=== PATIENT | female | born 1985 | race Caucasian/White ===

== ENCOUNTER 2017-09-03 09:52 | Emergency (ER) | payer OTHER, MEDICAID ==
[2017-09-03] MEDS ORDERED: Sodium Chloride 0.9% 10 ML Syringe FLUSH PRN (09:59)
[2017-09-03] MEDS ORDERED: Sodium Chloride 0.9% 1,000 ML IV SCH (10:00)
[2017-09-03] MEDS ORDERED: Sodium Chloride 0.9% 10 ML Syringe FLUSH ONE (10:05)
[2017-09-03] MEDS ORDERED: Iopamidol 612 MG/ML 150 ML Bottle IVPUSH ONE (10:05)
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
--- NOTE | 2017-09-03 10:46 | CT ---
CT cervical spine Technique: Multiple axial sections were obtained from above the C1 inferiorly to the mid T2 level. Reconstructed sagittal and coronal images were reviewed. Comparison: No prior CT imaging of the cervical spine. Findings: Posterior skull base is intact. Visualized mastoid sinuses are clear. Vertebral body heights are maintained. Very slight disc space narrowing is noted at C5-C6. Posterior spurring noted at C3-C4. Small posterior spur to the midline noted at C4-C5. No fracture is identified. No bony central canal stenosis or neural foraminal stenosis is seen. Mild kyphosis is seen which is most likely positional. Impression: 1. Mild degenerative change. 2. Nothing acute is seen on CT study of the cervical spine. Diagnostic code #2
[2017-09-03] MEDS ORDERED: Ondansetron 4 MG/2 ML SDV IVPUSH ONE (10:47)
[2017-09-03] MEDS ORDERED: HYDROmorphone 0.5 MG/0.5 ML SYRINGE IVPUSH ONE (10:47)
--- NOTE | 2017-09-03 10:48 | CT ---
Head CT Technique: Multiple axial sections through the brain were obtained. Intravenous contrast was not utilized. Comparison: No previous intracranial imaging. Findings: Ventricles along with basal cisterns and sulci over convexities are within normal limits for the patient's age. No abnormal parenchymal densities are seen. No evidence of intracranial hemorrhage. No midline shift or mass effect is seen. Bone window settings were reviewed which shows mucosal thickening within the ethmoid and maxillary sinuses. Minimal fluid is seen within the sphenoid sinus. Findings most likely are chronic. No acute calvarial abnormality is identified. Impression: 1. Sinus findings which are likely pre-existing and chronic. 2. No acute intracranial abnormality is seen. Nothing acute is seen within the skull. Diagnostic code #2
--- NOTE | 2017-09-03 10:48 | CT ---
CT chest Technique: Multiple axial sections were obtained from above the lung apices inferiorly through the lung bases. Intravenous contrast was utilized. Comparison: No previous chest x-ray or chest CT. Findings: Mediastinum and hilar regions are unremarkable. Opacified great vessels shows no discrete abnormality. No pericardial fluid is seen. Small nodule is noted within the right upper lung in a subpleural location measuring 4 mm. Lungs otherwise are clear. No pleural effusions or pulmonary contusion is seen. No discrete rib fracture is seen. No compression deformities are seen within the thoracic spine. Reconstructed sagittal images of the sternum appear within normal limits. Impression: 1. 4 mm nodule within the right upper lung. If patient is a smoker, recommend follow-up noncontrast chest CT in one year. If patient is not a smoker, this can be ignored. 2. No additional abnormality is seen on CT study of the chest. Diagnostic code #9 CT abdomen and pelvis Technique: Multiple axial sections were obtained from above the dome of the diaphragm inferiorly through the pubic symphysis. Intravenous contrast was utilized. No oral contrast has been given. Comparison: No prior abdominal imaging. Findings: Liver shows fatty infiltration. No focal abnormality is identified within the liver. Spleen appears within normal limits. Surgical clips are seen from previous cholecystectomy. Adrenal glands show no nodule. Pancreas is within normal limits. Kidneys show symmetric contrast enhancement and appear within normal limits. Aorta shows no aneurysmal dilatation. No retroperitoneal adenopathy or mesenteric abnormalities are seen. Small femoral hernia is seen containing fat. Small fat-containing upper abdominal hernia is seen to the right of midline with several adjacent surgical clips. No free fluid or inflammatory change is seen within the abdomen or pelvis. No bowel dilatation is seen. Bone window settings were reviewed which shows no compression deformity within the thoracic spine. No fracture is identified within the bony pelvis. Impression: 1. Fatty infiltration within the liver. 2. Small fat-containing right femoral hernia. Small fat-containing right upper abdominal wall hernia. 3. Nothing acute is seen on CT study of the abdomen and pelvis. Diagnostic code #2
--- NOTE | 2017-09-03 11:56 | CR ---
Right first toe: Four views of the right first toe were obtained. Comparison: No prior study. Joint spaces are maintained. No fracture, dislocation or other bony abnormality is seen. Impression: 1. Nothing acute is appreciated on right first toe study. Diagnostic code #1
[2017-09-03 12:11] VITALS: BP 127/69
== END 2017-09-03 12:50 | disposition home or self-care (01) ==
LOC: JD.ED 09:52
DX: S09.90XA Unspecified injury of head, initial encounter (principal); S93.501A Unspecified sprain of right great toe, initial encounter; S30.1XXA Contusion of abdominal wall, initial encounter; Z88.8 Allergy status to other drugs, medicaments and biological substances; Z91.040 Latex allergy status; Z77.22 Contact with and (suspected) exposure to environmental tobacco smoke (acute) (chronic); V89.2XXA Person injured in unspecified motor-vehicle accident, traffic, initial encounter
CPT/HCPCS: 36415; 70450; 71260; 72125; 73660; 74177; 80053; 83690; 84703; 85025; 96361; 96374; 96375; 99285; G0480; J1170; J2405; J7040; J7050; Q9967; 99284